=== PATIENT | female | born 1980 | race Caucasian/White ===

== ENCOUNTER 2016-10-14 06:06 | Observation (INO) | payer OTHER ==
--- NOTE | 2016-10-14 06:15 | ERNOTE ---
Abdominal HPI - Narrative Date of Service: 10/14/16 - General Chief Complaint: Abdominal Pain Time Seen by Provider: 10/14/16 06:08 Source: patient, RN/MD Exam Limitations: no limitations - History of Present Illness Narrative: This is a 36-year-old female with no significant medical problems who comes to the emergency Department via transfer from a local facility. He went into that facility last night and was having abdominal pain primarily in the right upper quadrant. She had normal labs. She had a CAT scan which demonstrated significant pericholecystic fluid and gallbladder wall thickening. The patient was then transferred here to go to surgery. I have talked with the surgeon he is planning on scheduling her today. She has had no further vomiting. She has not had a fever. Review of Systems - Review of Systems Constitutional: Present: See HPI EYE: Present: no symptoms reported ENT: Present: no symptoms reported Respiratory: Present: no symptoms reported Cardiology: Present: no symptoms reported Gastrointestinal/Abdominal: Present: See HPI Genitourinary: Present: no symptoms reported Musculoskeletal: Present: no symptoms reported Skin: Present: no symptoms reported Neurological: Present: no symptoms reported Endocrine: Present: no symptoms reported Hematologic/Lymphatic: Present: no symptoms reported Psych: Present: no symptoms reported All Other Systems: All systems neg except as marked Physical Exam - Physical Exam General Appearance: Present: wd/wn, alert, no apparent distress Head Exam: Present: normal inspection, no evidence of injury Eye Exam: Normal inspection: bilateral, PERRL: bilateral Ears, Nose, Throat: Present: normal ENT inspection Neck: Present: normal inspection Respiratory: Present: no respiratory distress Cardiovascular/Chest: Present: regular rate, rhythm Gastrointestinal/Abdominal: Present: normal bowel sounds, soft, other - equivocal Chu's sign. Tenderness but no rebound or guarding in the right upper quadrant Back Exam: Present: normal inspection Extremity Exam: Present: normal inspection Neurological Exam: Present: alert, oriented, normal mood/affect Skin Exam: Present: normal color, warm/dry Lymphatic Exam: Present: no adenopathy ED Progress - Vital Signs Patient's Vital Signs:: I have reviewed the patient's vital signs. - Progress/Reassessment Chief Complaint: Abdominal Pain Plan - Plan Plan: The patient is being admitted to the surgeon, . She has received antibiotics. Plan is to go to the operating room. I will put her in for floor bed. Departure - Departure Clinical Impression: Cholecystitis
[2016-10-14] MEDS ORDERED: ONDANSETRON HCL/PF 2 MG/ML VIAL IV PRN (06:50)
[2016-10-14] MEDS ORDERED: MORPHINE SULFATE 4 MG/ML SYRG IV PRN ×2 (06:50→13:14)
[2016-10-14] MEDS ORDERED: MORPHINE SULFATE 2 MG/ML DISP.SYRIN IV PRN ×2 (06:54→13:21)
[2016-10-14] MEDS: RINGER'S SOLUTION,LACTATED 1,000 ML IV PRN ×3 (07:44→11:50)
--- NOTE | 2016-10-14 10:18 | HP ---
Chief Complaint - Chief Complaint Date of Service: 10/14/16 Time of Service: 10:13 Chief Complaint: RUQ abdominal pain History of Present Illness: Pt presented to [facility] last night with complaints of RUQ abdominal pain that was constant and sharp. MICHAELS included a CT of the abdomen that showed a distended and thickened gallbladder with pericholeycstic fluid and fat stranding c/w acute cholecystitits. She was transferred to our facility for ongoing treatment. This morning she is pain free. - Patient's Past Medical History Patient History - Medical: No pertinent hx Patient History - Cardiac/Respiratory: No pertinent hx Patient History - Cancer: No Hx of Cancer Patient History - Surgical Procedures: Hernia Repair - inguinal Patient History - Other: None LMP (females 10-50): last week LMP (Calendar): 10/02/16 - Urine negative last night - Family History Mother Family History - Cardiac/Respiratory: CVA/Stroke, Hypertension Family History - Cancer: No pertinent family hx Father Family History - Medical: - Social History Living Situations: spouse Abuse History: No History of abuse Psych History: No pertinent hx Smoking Status: Never smoker Have you smoked in the past 12 months: No Do you dip or chew tobacco: No Alcohol Use: rarely Drug Use: none - Immunizations Immunizations Up to Date: Yes Review Of Systems (GEN) - Review of Systems Misc: All systems neg except as marked Allergies/Adverse Reactions: Allergies Allergy/AdvReac Type Severity Reaction Status Date / Time No Known Allergies Allergy Unverified 10/14/16 06:13 Home Medications: HOME MEDICATIONS Norethindrone-Mestranol [Necon] 1 each PO DAILY 10/14/16 [Last Taken Unknown] Exam - Exam Vital Signs: Vital Signs - Last Taken Temp 36.8 C 10/14/16 09:00 Pulse 69 10/14/16 09:00 Resp 18 10/14/16 09:00 BP 129/84 10/14/16 09:00 Pulse Ox 98 10/14/16 09:00 Constitutional: Present: Alert, Oriented x3, Cooperative, Well developed, Well nourished, No distress ENT Exam: Present: normal ENT inspection - bespectacled Eye Exam: bilateral eye: normal inspection Neck: Present: non-tender, full range of motion, supple, trachea midline. Absent: thyromegaly Respiratory: Present: lungs clear Cardiovascular/Chest: Present: regular rate, rhythm, no murmur Abdomen: Present: Normal bowel sounds, soft, nontender, nondistended, no hepatospenomegaly, no masses Extremity: Present: normal inspection Skin Exam: Present: normal color, warm/dry Lymphatic: Present: no adenopathy Neurologic: Present: no motor/sensory deficits Assessment/Plan - Narrative Narrative: A: Acute cholecystitis P: Probably early cholecystitis as her WBC is normal as yet. Has received antibiotics. Plan lap cande today. The options, risks, and benefits were reviewed fully. She seems to understand, asks appropriate questions, and desires to proceed.
[2016-10-14] MEDS ORDERED: BUPIVACAINE HCL/EPINEPHRINE 50 ML VIAL IJ ONE (12:10)
[2016-10-14] MEDS ORDERED: RINGER'S SOLUTION,LACTATED 1,000 ML IV ONE (12:45)
[2016-10-14] MEDS ORDERED: RINGER'S SOLUTION,LACTATED 1,000 ML IV PRN (13:14)
--- NOTE | 2016-10-14 13:14 | OR ---
Operative Report - Dictated Report Narrative: Date: 10/14/2016 Preoperative diagnosis: Acute cholecystitis Postoperative diagnosis: Same Staff surgeon: Man Bernabe MD Asst. surgeon: Trey Davies EBL: Minimal Specimen: Gallbladder Drains: None Complications: None apparent Indications: This patient was transferred from [place] having had right upper quadrant pain and a CT demonstrating a "acute cholecystitis with findings of gallbladder wall thickening pericholecystic fluid and fat stranding. She was taken to the operating room now for definitive treatment Description of procedure: The patient was placed in the supine position and following the smooth induction of general endotracheal anesthesia the abdomen was prepped and draped in a sterile fashion. All port sites were anesthetized with Marcaine prior to incision. An infraumbilical incision was carried out 5 mm in size. The abdomen was entered under direct vision with a 5 mm blunt port with the scope within the lumen of the trocar. The abdomen was then pressurized. A 15 mmHg with carbon dioxide. Under direct vision a superior midline 12 mm port and 2 right flank 5 mm ports were inserted. The gallbladder was pale and edematous in appearance. The fundus was grasped and elevated towards the diaphragm. The infundibulum was grasped for countertraction. The cystic duct was then isolated and a critical view of safety was obtained the cystic duct was then doubly clipped and divided. The cystic artery was doubly clipped and divided. The gallbladder was then taken out of the fossa with a combination of blunt dissection scissor dissection and electrocautery there is a small amount of bilious leakage during this portion of the procedure. Once liberated the gallbladder was placed in an Endo Catch bag and delivered through the superior midline port. This port was returned to the abdominal cavity and pneumoperitoneum was reestablished. Inspection was carried out. There was no evidence of bile leak. Hemostasis appeared to be adequate. The right upper quadrant was copiously irrigated with normal saline all of the irrigant was evacuated and running clear. The remainder of the Marcaine was squirted into the peritoneal cavity. The superior midline port site was closed with the Gilberto-Izzy device and heavy Vicryl suture. The pneumoperitoneum was evacuated. Incisions were closed with subcuticular stitches of 4-0 Vicryl and then sealed with Dermabond. The patient tolerated the procedure well without any apparent complications and was discharged from the operating room stable condition.
[2016-10-14] MEDS ORDERED: HYDROmorphone HCL 1 MG/ML DISP.SYRIN IV ONE (13:19)
[2016-10-14] MEDS ORDERED: diphenhydrAMINE HCL 50 MG/ML VIAL IV PRN (13:20)
[2016-10-14] MEDS ORDERED: HYDROmorphone HCL 2 MG/ML VIAL IV PRN (13:20)
[2016-10-14] MEDS ORDERED: NALOXONE HCL 0.4 MG/ML VIAL IV PRN (13:20)
[2016-10-14] MEDS ORDERED: PROMETHAZINE HCL 12.5 MG in DEXTROSE 5 % IN WATER 50 ML IV PRN ×2 (13:20)
[2016-10-14] MEDS: oxyCODONE HCL/ACETAMINOPHEN 1 TAB TABLET PO PRN ×2 (14:38→21:21)
[2016-10-14 17:44] VITALS: BP 134/70
[2016-10-14] MEDS ORDERED: HYDROcodone/ACETAMINOPHEN 1 EACH TABLET ONE (22:55)
--- NOTE | 2016-10-17 09:34 | DS ---
Description of Stay: Pt was transferred from [place] with acute cholecystitis and underwent lap cande here. Path showed acute and chronic cholecystitis. Her postop convalescence was unremarkable and was discharged to home the same day. Procedures Performed: see notes below List Procedures: Laparoscopic cholecystectomy Discharge Disposition: Home self care Disposition: Home self-care Condition: Good Discharge Activity: Activity as tolerated Discharge Diet: General/regular food Additional Patient Instructions (free text): Follow up with Dr. Taylor 10/25 at 1:00. Complete Home Medications List: Complete Home Medication List: Norethindrone-Mestranol [Necon] 1 each PO DAILY 10/14/16
== END 2016-10-14 23:05 | disposition home or self-care (01) ==
LOC: ER 06:06 → MS 06:43
PROVIDERS: ADMIT Specialist; ATTEND Specialist
PROC: 0FT44ZZ Resection of Gallbladder, Percutaneous Endoscopic Approach (ICD-10-PCS; principal; 2016-10-14 12:00)
DX: K80.12 Calculus of gallbladder with acute and chronic cholecystitis without obstruction (principal)
CPT/HCPCS: 47562; 88304; 96374; 96375; 96376; 99284; G0378; J2405